=== PATIENT | female | born 1960 | race Caucasian/White ===

== ENCOUNTER 2020-03-23 08:13 | Outpatient (CLI) | payer OTHER, SELFPAY ==
--- NOTE | ~2020-03-23 | MM_ITS ---
EXAMINATION: MM screening kendra BI w bob HISTORY: Screening TECHNIQUE: Craniocaudal and mediolateral oblique 3-D tomosynthesis images were obtained and synthetic 2-D images were generated. CAD analysis was submitted and interpreted. COMPARISON: Comparison to multiple prior studies sequentially, with oldest reviewed study dated 11/08. BREAST PARENCHYMAL COMPOSITION: There are scattered areas of fibroglandular density. FINDINGS: There is no evidence of suspicious mass, calcification, or architectural distortion to sugg est malignancy in either breast. There has been no suspicious interval change. IMPRESSION: 1. No mammographic evidence of malignancy. 2. Recommend routine screening mammography in one year. BI-RADS Category 1: Negative Reviewed, dictated and finalized at location A. SQL DBA
== END 2020-03-23 08:14 | disposition home or self-care (01) ==
LOC: ANHIMG 08:15
PROVIDERS: PCP Physician Assistant; Visit Provider Physician Assistant
DX: Z12.31 Encounter for screening mammogram for malignant neoplasm of breast (principal)
CPT/HCPCS: 77063; 77067

== ENCOUNTER 2020-09-11 15:27 | Outpatient (CLI) | payer OTHER, SELFPAY ==
[2020-09-11 15:48] LABS: Basophils Percent Auto 0.4 % (0.2-1.2); Eosinophils Absolute Auto 0.2 K/mm3 (0-0.3); Eosinophils Percent Auto 4.4 % (0-4.4); Hematocrit 31.8 % (37.0-47.0); Hemoglobin 9.7 g/dL (12.0-15.0); Immature Granulocyte Absolute 0.02 K/mm3 (0.00-0.031); Immature Granulocyte Percent A 0.4 % (0-0.5); Immature Reticulocyte Fraction 27.7 % (3.0-15.9); Lymphocytes Absolute Auto 1.57 K/mm3 (0.9-3.2); Lymphocytes Percent Auto 31.4 % (18.3-44.2); Mean Corpuscular HGB Conc 30.5 g/dl (32-36); Mean Corpuscular Hemoglobin 27.1 pg (26-34); Mean Corpuscular Volume 88.8 fl (80-100); Mean Platelet Volume 10.6 fl (7.4-10.4); Monocytes Absolute Auto 0.4 K/mm3 (0.1-0.6); Monocytes Percent Auto 8.2 % (2.6-8.5); Neutrophils Absolute Auto 2.8 K/mm3 (1.3-6.7); Neutrophils Percent Auto 55.2 % (45.5-73.1); Platelet Count Result 264 k/mm3 (150-375); Red Blood Count 3.58 M/mm3 (4.2-5.4); Red Cell Distribution Width 16.2 % (11.5-14.5); Reticulocyte Hemoglobin Conten 30.9 pg (28.2-35.7); Reticulocyte Percent 1.46 % (0.7-4.3); Reticulocytes Absolute 0.05 B/L (32.2-175.7)
[2020-09-11 16:49] LABS: Iron 51 ug/dL (37-170)
[2020-09-11 16:51] LABS: Alanine Aminotransferase 15 U/L (4-35); Albumin Level 3.7 g/dL (3.5-5.1); Alkaline Phosphatase 52 U/L (38-126); Anion Gap 4 mmol/L (8-16); Aspartate Amino Transferase 17 U/L (14-36); Bilirubin,Total 0.3 mg/dL (0.2-1.3); Blood Urea Nitrogen 17 mg/dL (7-17); Carbon Dioxide 29 mmol/L (22-30); Chloride 107 mmol/L (98-107); Estimated Glomerular Filt Rate 57; Glucose 107 mg/dL (65-105); Lactate Dehydrogenase 520 U/L (313-618); Potassium 4.9 mmol/L (3.4-5.0); Sodium 140 mmol/L (137-145)
[2020-09-11 16:58] LABS: Percent Iron Saturation 12 % (20-50)
[2020-09-11 17:25] LABS: Ferritin 6.71 ng/mL (11.1-264)
[2020-09-11 17:57] LABS: Folic Acid 8.3 ng/mL (2.76->20); Vitamin B12 < 159.0 pg/mL (239-931)
[2020-09-14 19:57] LABS: Soluble Transferrin Receptor 1.81 mg/L (0.76-1.76)
== END 2020-09-11 15:28 | disposition home or self-care (01) ==
LOC: ANHLAB 15:28
PROVIDERS: PCP Physician Assistant; Visit Provider Internal Medicine Hematology & Oncology
DX: D64.9 Anemia, unspecified (principal)
CPT/HCPCS: 36415; 80053; 82607; 82728; 82746; 83540; 83550; 83615; 84238; 85025; 85046

== ENCOUNTER 2021-03-31 15:10 | Emergency (ER) | payer MEDICARE, MEDICAID, SELFPAY ==
--- NOTE | ~2021-03-31 | XR_ITS ---
EXAMINATION: XR elbow RT min 3V DATE: 03/31/2021 15:35 INDICATION: Right elbow injury and pain. TECHNIQUE: 4 views of right elbow were obtained. COMPARISON: Right forearm radiographs 05/02/2010 FINDINGS: There is a fracture of radial head involving the anterior 1/4 of the articular surface with 2 mm gap at the articular surface and up to 2 mm impaction. There is mild osteoarthritis of ulnohume ral joint. There are enthesophytes at the medial and lateral humeral epicondyles. There is an elbow j oint effusion. IMPRESSION: 1. Radial head fracture. 2. Mild elbow joint osteoarthritis. 3. Elbow joint effusion. Reviewed, dictated and finalized at location A. CTOR OF CATERING
[2021-03-31 15:17] VITALS: BP 137/66; PULSE 89; RESP 16; TEMP 35.9; O2SAT 100
--- NOTE | 2021-03-31 17:46 | ED.GENADULT ---
HPI - General Adult General Chief complaint: Extremity Injury, Upper Stated complaint: right arm pain Time Seen by Provider: 03/31/21 15:51 Source: RN notes reviewed History of Present Illness HPI narrative: Patient presents emergency room from home for right elbow pain. Patient states just prior to arrival she had fallen off of her porch landing on her right elbow that was bent states has had pain in the right elbow since that time she denies any other trauma or injury she denies any pain in the shoulder or wrist states did not take anything for pain at home denies any numbness or tingling in the extremity Related Data Home Medications Medication Instructions Recorded Confirmed atorvastatin 40 mg BYMOUTH DAILY 12/17/20 03/11/21 losartan 100 mg DAILY 12/17/20 03/11/21 metformin 100 mg BID 12/17/20 03/11/21 pregabalin 150 mg DAILY 12/17/20 03/11/21 Januvia 100 mg DAILY 12/18/20 03/11/21 Vitamin D (with calcium) 50,000 units PO WEEKLY 12/18/20 03/11/21 acarbose 25 mg TID 12/18/20 03/11/21 aspirin 8 mg DAILY 12/18/20 03/11/21 cyclobenzaprine 10 mg DAILY 12/18/20 03/11/21 docusate sodium 100 mg BID 12/18/20 03/11/21 montelukast 10 mg DAILY 12/18/20 03/11/21 omeprazole 20 mg PO DAILY 12/18/20 03/11/21 pioglitazone 45 mg DAILY 12/18/20 03/11/21 amlodipine 5 mg PO DAILY 03/11/21 03/11/21 Allergies Allergy/AdvReac Type Severity Reaction Status Date / Time Penicillins Allergy Mild Verified 03/11/21 11:15 Review of Systems Review of Systems: Gen.: Denies fevers or chills Musculoskeletal: See HPI Neuro: Denies numbness, tingling, weakness Skin: Denies rash Endo: Denies DM PMFSH Past Medical History Medical History (Updated 03/31/21 @ 17:49 by Peewee Gomez DO) B12 deficiency anemia Iron deficiency anemia Social History Social History Smoking status: Former smoker Tobacco type: cigarettes Spiritual care concerns: No Exam Narrative: APPEARANCE: No acute distress, nontoxic, resting in bed Eyes: EOMI HEENT: Normocephalic, atraumatic, RESPIRATORY: No respiratory distress MUSCULOSKELETAl: Tender palpation of the right lateral and dorsal elbow mild swelling with no ecchymosis no tenderness of the right wrist or elbow radial pulse 2+ neurovascular intact NEURO: Awake and alert. Following commands, speech normal, no focal deficits SKIN:: Warm, dry. Normal Color no rash or lesions Course Course Emergency Course: Discussed with Dr. Dick orthopedics presentation work-up request patient placed in sling with follow-up as an outpatient Discussed with patient results of workup and diagnosis. Discussed need for follow-up with primary care, proper use of medication, and reasons to return to the emergency department. Patient understands and agrees to current treatment plan Vital Signs Vital signs: Vital Signs Temperature 96.7 F L 03/31/21 15:17 Pulse Rate 89 03/31/21 15:17 Respiratory Rate 16 03/31/21 15:17 Blood Pressure 137/66 03/31/21 15:17 Pulse Oximetry 100 03/31/21 15:17 Temperature 96.7 F L 03/31/21 15:17 Pulse Rate 89 03/31/21 15:17 Respiratory Rate 16 03/31/21 15:17 Blood Pressure 137/66 03/31/21 15:17 Pulse Oximetry 100 03/31/21 15:17 Medical Decision Making Vital Signs Vital Signs: Vital Signs Temperature 96.7 F L 03/31/21 15:17 Pulse Rate 89 03/31/21 15:17 Respiratory Rate 16 03/31/21 15:17 Blood Pressure 137/66 03/31/21 15:17 Pulse Oximetry 100 03/31/21 15:17 Temperature 96.7 F L 03/31/21 15:17 Pulse Rate 89 03/31/21 15:17 Respiratory Rate 16 03/31/21 15:17 Blood Pressure 137/66 03/31/21 15:17 Pulse Oximetry 100 03/31/21 15:17 Imaging Data Radiologist's impression: ITS Impressions Elbow X-Ray 03/31/21 15:40 IMPRESSION: 1. Radial head fracture. 2. Mild elbow joint osteoarthritis. 3. Elbow joint effusion. Discharge Plan Discharge Clinical Impres
[2021-03-31] MEDS: ACETAMINOPHEN 500 MG TABLET 1000 MG PO (18:14)
[2021-03-31 18:30] VITALS: BP 130/72; PULSE 90; RESP 18; O2SAT 100
== END 2021-03-31 18:30 | disposition home or self-care (01) ==
LOC: ANHED 17:55
PROVIDERS: Emergency Provider Emergency Medicine; PCP Physician Assistant
DX: S52.121A Displaced fracture of head of right radius, initial encounter for closed fracture (principal); Z86.2 Personal history of diseases of the blood and blood-forming organs and certain disorders involving the immune mechanism; Z87.891 Personal history of nicotine dependence; W18.39XA Other fall on same level, initial encounter
CPT/HCPCS: 73080; 99284; A4565; A9270

== ENCOUNTER 2021-06-05 11:48 | Outpatient (CLI) | payer MEDICARE, MEDICAID, SELFPAY ==
--- NOTE | ~2021-06-05 | MM_ITS ---
EXAMINATION: MM screening kendra BI w bob HISTORY: Screening TECHNIQUE: Craniocaudal and mediolateral oblique 3-D tomosynthesis images were obtained and synthetic 2-D images were generated. CAD analysis was submitted and interpreted. COMPARISON: No prior mammogram is available for comparison at this institution. BREAST PARENCHYMAL COMPOSITION: There are scattered areas of fibroglandular density. FINDINGS: There is no evidence of suspicious mass, calcification, or architectural distortion to sugg est malignancy in either breast. There has been no suspicious interval change. IMPRESSION: 1. No mammographic evidence of malignancy. 2. Recommend routine screening mammography in one year. BI-RADS Category 1: Negative Reviewed, dictated and finalized at location A. E REPAIR MECHANIC
== END 2021-06-05 11:49 | disposition home or self-care (01) ==
LOC: ANHIMG 11:51
PROVIDERS: PCP Physician Assistant; Visit Provider Physician Assistant
DX: Z12.31 Encounter for screening mammogram for malignant neoplasm of breast (principal)
CPT/HCPCS: 77063; 77067

== ENCOUNTER 2022-06-16 14:46 | Outpatient (CLI) | payer MEDICARE, MEDICAID, SELFPAY ==
--- NOTE | ~2022-06-16 | MM_ITS ---
EXAMINATION: MM screening kendra BI w bob HISTORY: Screening TECHNIQUE: Craniocaudal and mediolateral oblique 3-D tomosynthesis images were obtained and synthetic 2-D images were generated. CAD analysis was submitted and interpreted. COMPARISON: Comparison to multiple prior studies sequentially, with oldest reviewed study dated 02/16. BREAST PARENCHYMAL COMPOSITION: There are scattered areas of fibroglandular density. FINDINGS: There is no evidence of suspicious mass, calcification, or architectural distortion to sugg est malignancy in either breast. There has been no suspicious interval change. IMPRESSION: 1. No mammographic evidence of malignancy. 2. Recommend routine screening mammography in one year. BI-RADS Category 1: Negative Reviewed, dictated and finalized at location A. ATIONS ARCHITECT
== END 2022-06-16 14:47 | disposition home or self-care (01) ==
LOC: ANHIMG 14:47
PROVIDERS: PCP Nurse Practitioner; Visit Provider Nurse Practitioner
DX: Z12.31 Encounter for screening mammogram for malignant neoplasm of breast (principal)
CPT/HCPCS: 77063; 77067

== ENCOUNTER 2022-08-07 14:34 | Outpatient (CLI) | payer MEDICARE, MEDICAID, SELFPAY ==
[2022-08-07 14:54] LABS: Basophils Absolute Auto 0.1 K/mm3 (0.0-0.1); Basophils Percent Auto 0.9 % (0.2-1.2); Eosinophils Absolute Auto 0.1 K/mm3 (0-0.3); Eosinophils Percent Auto 2.1 % (0-4.4); Hematocrit 33.2 % (37.0-47.0); Hemoglobin 10.6 g/dL (12.0-15.0); Immature Granulocyte Absolute 0.01 K/mm3 (0.00-0.031); Immature Granulocyte Percent A 0.2 % (0-0.5); Lymphocytes Percent Auto 31.5 % (18.3-44.2); Mean Corpuscular HGB Conc 31.9 g/dl (32-36); Mean Corpuscular Hemoglobin 30.1 pg (26-34); Mean Corpuscular Volume 94.3 fl (80-100); Mean Platelet Volume 10.6 fl (7.4-10.4); Monocytes Absolute Auto 0.4 K/mm3 (0.1-0.6); Monocytes Percent Auto 7.2 % (2.6-8.5); Neutrophils Absolute Auto 3.3 K/mm3 (1.3-6.7); Neutrophils Percent Auto 58.1 % (45.5-73.1); Platelet Count Result 263 k/mm3 (150-375); Red Blood Count 3.52 M/mm3 (4.2-5.4); Red Cell Distribution Width 14.8 % (11.5-14.5); White Blood Count 5.7 K/mm3 (4.5-10.0)
[2022-08-07 15:26] LABS: Cholesterol 122 mg/dL (0-200); HDL Direct 50 mg/dL; Iron 64 ug/dL (37-170); Triglycerides 122 mg/dL (<150)
[2022-08-07 15:36] LABS: Percent Iron Saturation 17 % (20-50)
[2022-08-07 15:37] LABS: LDL Cholesterol Direct 39 mg/dL
[2022-08-07 16:36] LABS: Folic Acid 11.4 ng/mL (2.76->20)
== END 2022-08-07 14:35 | disposition home or self-care (01) ==
LOC: ANHLAB 14:37
PROVIDERS: Internal Medicine Cardiovascular Disease; PCP Nurse Practitioner; Visit Provider Internal Medicine Hematology & Oncology
DX: E78.5 Hyperlipidemia, unspecified (principal); D51.9 Vitamin B12 deficiency anemia, unspecified
CPT/HCPCS: 36415; 80061; 82607; 82728; 82746; 83540; 83550; 85025

== ENCOUNTER 2023-04-27 10:24 | Outpatient (CLI) | payer MEDICARE, MEDICAID, SELFPAY ==
--- NOTE | ~2023-04-27 | US_ITS ---
EXAMINATION: US retroperitoneal comp DATE: 04/27/2023 11:54 INDICATION: Chronic kidney disease. TECHNIQUE: Multiple ultrasound grayscale images of the kidneys were obtained. COMPARISON: None. FINDINGS: The right kidney measures 10.0 x 3.1 x 3.0 cm. The left kidney measures 12.7 x 3.5 x 4.7 cm. The kidn eys demonstrate normal parenchymal echogenicity. There is no hydronephrosis. The bladder is normal. IMPRESSION: 1. Normal kidneys. No hydronephrosis. Reviewed, dictated and finalized at location A. TTER
== END 2023-04-27 10:25 | disposition home or self-care (01) ==
PROVIDERS: PCP Nurse Practitioner; Visit Provider Nurse Practitioner
DX: N18.32 Chronic kidney disease, stage 3b (principal)
CPT/HCPCS: 36415; 76770; 82607; 82746; 85025

== ENCOUNTER 2023-08-05 13:56 | Outpatient (CLI) | payer MEDICARE, MEDICAID, SELFPAY ==
--- NOTE | ~2023-08-05 | MM_ITS ---
EXAMINATION: MM screening kendra BI w bob HISTORY: Screening TECHNIQUE: Craniocaudal and mediolateral oblique 3-D tomosynthesis images were obtained and synthetic 2-D images were generated. CAD analysis was submitted and interpreted. COMPARISON: Comparison to multiple prior studies sequentially, with oldest reviewed study dated 02/16. BREAST PARENCHYMAL COMPOSITION: Not dense: There are scattered areas of fibroglandular density. FINDINGS: There is no evidence of suspicious mass, calcification, or architectural distortion to sugg est malignancy in either breast. There has been no suspicious interval change. IMPRESSION: 1. No mammographic evidence of malignancy. 2. Recommend routine screening mammography in one year. BI-RADS Category 1: Negative Reviewed, dictated and finalized at location A.
== END 2023-08-05 13:57 | disposition home or self-care (01) ==
LOC: ANHIMG 14:02
PROVIDERS: PCP Nurse Practitioner; Visit Provider Nurse Practitioner
DX: Z12.31 Encounter for screening mammogram for malignant neoplasm of breast (principal)
CPT/HCPCS: 77063; 77067

== ENCOUNTER 2024-10-15 10:00 | Outpatient (CLI) | payer MEDICARE, MEDICAID, SELFPAY ==
--- NOTE | ~2024-10-15 | MM_ITS ---
EXAMINATION: MM screening kendra BI w bob HISTORY: Screening TECHNIQUE: Craniocaudal and mediolateral oblique 3-D tomosynthesis images were obtained and synthetic 2-D images were generated. CAD analysis was submitted and interpreted. COMPARISON: Comparison to multiple prior studies sequentially, with oldest reviewed study dated 02/16. BREAST PARENCHYMAL COMPOSITION: Not dense: There are scattered areas of fibroglandular density. FINDINGS: There is no evidence of suspicious mass, calcification, or architectural distortion to sugg est malignancy in either breast. There has been no suspicious interval change. IMPRESSION: 1. No mammographic evidence of malignancy. 2. Recommend routine screening mammography in one year. BI-RADS Category 1: Negative Reviewed, dictated and finalized at location A.
--- OUTSIDE RECORDS SUMMARY | 2024-10-15 10:04 | XMS_ITS | Encounter Summary ---
Author Organization [facility] Address [address] [place] [address] Phone Care Team Providers Care Formula Checker Name Role Phone Francisco Javier Guerra Primary Care Provider [phone] Juanito Connolly MD Unavailable [phone] Encounter Details Date Type Department Care Team (Late st Contact Info) Description 10/22/2021 Telephone [facility] [address] [phone] Juanito Connolly MD [address] [place] [phone] Social History Tobacco Use Types Packs/Day Years Used Date Smoking Tobacco: Never Assessed Comments Unknown Sex and Gender Information Value Date Recorded Sex Assigned at Not on file Legal Sex Female 11:25 AM CDT Gender Identity Not on file Sexual Orientation Not on file documented as of this encounter Miscellaneous Notes * Telephone Encounter - Charissa Krishnan - 10/22/2021 3:09 PM CDT PT CANCEL APPT, BECAUSE SHE ALREADY SEES DR. DICKINSON. documented in this encounter Plan of Treatment Not on file documented as of this encounter Visit Diagnoses Not on filedocumented in this encounter Care Teams Formula Checker Relationship Specialty Start Date End Date Francisco Javier Guerra PA [address] [place] [address] PCP - General Physician Route Sales Trainee 08/30/21 Juanito Connolly MD [address] [place] [address] Consulting Physician Oncology 08/30/21 documented as of this encounter
--- OUTSIDE RECORDS SUMMARY | 2024-10-15 10:04 | XMS_ITS | Clinical Summary ---
Author Organization [facility] León Gross Address [address] [place] [address] Care Team Providers Care It Security Architect Name Role Phone Provider, Abstract Primary Care Provider Unavail able Allergies Active Allergy Reactions Criticality Noted Date Comments Penicillins Rash Low 09/11/2020 Medications pioglitazone (ACTOS) 45 mg tablet pioglitazone 45 mg tablet TK 1 T PO QD 08/07/19 21 Active atorvastatin (LIPITOR) 40 mg tablet atorvastatin 40 mg tablet TK 1 T PO QD 12/05/19 18 Active aspirin (ECOTRIN EC) 81 mg Tablet, Delayed Release (E.C.) Take by mouth. 07/31/19 21 Active ammonium lactate (LAC-HYDRIN) 12 % Lotion ammonium lactate 12 % lotion ERLINDA EXT TO AB FEET D PRN Active alcohol Pads, Medicated Alcohol Prep Pads Ac tive cholecalcifero l (VITAMIN D3) 400 unit Tablet, Chewable VITAMIN D TABLET 01/15/20 18 Active blood sugar diagnostic Strip OneTouch Verio test strips Active lancets 30 gauge lancets 30 gauge Act elbert cyclobenzaprin e (FLEXERIL) 10 mg tablet cyclobenzaprine 10 mg tablet TK 1 T PO QD HS 07/09/19 21 Active docusate sodium (COLACE) 100 mg capsule DOK 100 mg capsule TK 1 C PO BID PRN 12/05/19 18 Active ergocalciferol (VITAMIN D2) 50,000 unit capsule ergocalciferol (vitamin D2) 1,250 mcg (50,000 unit) capsule Active metFORMIN (GLUCOPHAGE) 1,000 mg tablet metformin 1,000 mg tablet TK 1 T PO BID QD 12/05/19 18 Active montelukast (SINGULAIR) 10 mg tablet montelukast 10 mg tablet TK 1 T PO QAM 12/05/19 18 Active potassium chloride (KLOR-CON) 10 mEq Extended Release tablet potassium chloride ER 10 mEq tablet,extended release TK 1 T PO QD FOR 10 DAYS Active pregabalin (LYRICA) 150 mg Capsule pregabalin 150 mg capsule 12/05/19 18 Active SITagliptin (JANUVIA) 100 mg Tablet Januvia 100 mg tablet TK 1 T PO QAM 12/05/19 18 Active amLODIPine (NORVASC) 5 mg tablet Take by mouth. 02/26/20 21 Active Active Problems Problem Noted Date Diagnosed Date Other dietary vitamin B12 deficiency anemia 09/15 Chronic anemia 09/11/2020 Encounters Date Type Department Care Team Description 10/11/2024 External Device Data STL ABSTRACTION Provider, Abstract 10/05/2024 External Device Data STL ABSTRACTION Provider, Abstract 10/04/2024 External Device Data STL ABSTRACTION Provider, Abstract 08/16/2024 External Device Data STL ABSTRACTION Provider, Abstract 08/03/2024 External Device Data STL ABSTRACTION Provider, Abstract 07/27/2024 External Device Data STL ABSTRACTION Provider, Abstract 07/26/2024 External Device Data STL ABSTRACTION Provider, Abstract 07/25/2024 External Device Data STL ABSTRACTION Provider, Abstract 07/23/2024 External Device Data STL ABSTRACTION Provider, Abstract 07/22/2024 External Device Data STL ABSTRACTION Provider, Abstract 07/20/2024 External Device Data STL ABSTRACTION Provider, Abstract 07/19/2024 11:00 AM FAST FOOD ASSISTANT RESTAURANT MANAGER Office Visit [facility] [address] [place] [phone] Devang Watson MD Chronic anemia (Primary Dx) 07/18/2024 Orders Only [facility] [address] [place] [phone] Devang Watson MD from Last 3 Months Family History Relation Name Status Comments Brother Father Mother Sister 1 Alive Sister 2 Alive Social History Tobacco Use Types Packs/Day Years Used Date Smoking Tobacco: Former Smokeless Tobacco: Never Tobacco Cessation:Counseling Given: Not Answered Alcohol Use Standard Drinks/Week Comments Never 0 (1 standard drink = 0.6 oz pur e alcohol) Comments Unknown Sex and Gender Information Value Date Recorded Sex Assigned at Not on file Legal Sex Female 8:03 AM CDT Gender Identity Not on file Sexual Orientation Not on file Last Filed Vital Signs Vital Sign Reading Time Taken Comments Blood Pressure 133/76 07/19/2024 10:17 AM FAST FOOD ASSISTANT RESTAURANT MANAGER Pulse 83 07/19/2024 10:17 AM FAST FOOD ASSISTANT RESTAURANT MANAGER Temperature 35.9 C (96.6 F) 07/19/2024 10:17 AM FAST FOOD ASSISTANT RESTAURANT MANAGER Respiratory Rate 15 07/19/2024 10:17 AM FAST FOOD ASSISTANT RESTAURANT MANAGER Oxygen Saturation 95% 07/19/2024 10:17 AM FAST FOOD ASSISTANT RESTAURANT MANAGER Inhaled Oxygen Concentration - - Weight 95.3 kg (210 lb 3.2 oz) 07/19/2024 10:17 AM FAST FOOD ASSISTANT RESTAURANT MANAGER Height 167.6 cm (5' 6) 02/10/2022 9:19 AM CDT Body Mass Index 33.93 02/10/2022 9:19 AM CDT Plan of Treatment Upcoming Encounters Date Type Department Care Team (Late st Contact Info) Description 11/21/2024 10:00 AM CDT Office Visit [facility] - [place] [address] [facility] [address] [place] [address] Devang Watson MD [address] [facility] [address] [place] [address] Health Maintenance Due Date Last Done Comments DIABETES ANNUAL FOOT EXAM 1978 DIABETES ANNUAL RETINAL EXAM 1978 DIABETES MICROALBUMIN ANNUAL SCREEN 1978 LDL CHOLESTEROL ANNUAL 1978 HPV/Cotest (21-29) 1981 HPV/Cotest (30-65) 1990 FIT-DNA Q 3 years 2005 FIT/FOBT Q 1 year 2005 Flex Sig/CT Colonography Q 5 years 2005 ZOSTER VACCINE (1 of 2) 2010 RSV VACCINE (60+ or ) (1 - Risk 60-74 years 1-dose series) 2020 COVID-19 Vaccine (2 - 2023-2 5 season) 2024 08/16/2021 BREAST CANCER SCREENING 08/04/2024 08/05/19 24, 08/05/2023, 06/16/2022, Additional history exists DIABETES HBA1C Q 6 MONTHS 12/05/20242024, 2023, 06/02/2023, Additional history exists CERVICAL CANCER SCREENING 10/07/2025 PAP SMEAR 10/07/2025 10/07/2022 COLORECTAL SCREENING 03/21/2031 03/21/2021 Colorectal Cancer Screening 03/21/2031 DTAP/TDAP/TD VACCINES (2 - T d or Tdap) 02/18/2032 02/17/2022 INFLUENZA VACCINE Completed 03/24/2024, , 02/17/2022, Additional history exists Procedures Procedure Name Priority Date/Time Associated Diagnosis Comments COMPREHENSIVE METABOLIC PANEL Routine 07/15/2024 9:52 AM FAST FOOD ASSISTANT RESTAURANT MANAGER from Last 3 Months Results * COMPREHENSIVE METABOLIC PANEL (07/15/2024 9:52 AM FAST FOOD ASSISTANT RESTAURANT MANAGER) Blood Devang Watson MD CHEMISTRY ORDERABLES Final Resu lt from Last [address] [id number] Care Teams It Security Architect Relationship Specialty Start Date End Date Provider, Abstract NO ADDRESS ON FILE PCP - General 09/11/20
--- OUTSIDE RECORDS SUMMARY | 2024-10-15 10:04 | XMS_ITS | Clinical Summary ---
Author Organization [facility] Address [address] [facility] [address] [place] [address] Phone Care Team Providers Care Shingle Sawyer Name Role Phone Francisco Javier Guerra Primary Care Provider [phone] Juanito Connolly MD Unavailable Social History Tobacco Use Types Packs/Day Years Used Date Smoking Tobacco: Never Assessed Comments Unknown Sex and Gender Information Value Date Recorded Sex Assigned at Not on file Legal Sex Female 11:25 AM CDT Gender Identity Not on file Sexual Orientation Not on file Plan of Treatment Health Maintenance Due Date Last Done Comments Hepatitis C Virus (HCV) Screening 1960 TdaP Immunization 1960 Pap Smear 1981 Cervical Cancer Screening (CCS) 1990 HPV/Cotest 1990 Colonoscopy 2005 Colorectal Cancer Screening 2005 Cologuard 2010 Immunochemical Fecal Occult Blood 2010 Mammogram 2010 Pneumococcal Immunization (50+ years) (1 of 1 - PCV) 2010 Zoster Immunization (1 of 2) 2010 Influenza Immunization (#1) 01/17/202404/17, 02/28/2020, 02/15/2019, Additional history exists SARS-COV-2 Immunization ( season) 2024 08/16/2021, 07/26/2020 Respiratory Syncytial Virus (RSV) Immunization (Adult) (1 - 1-dose 75+ series) 12/03/2035 Hepatitis B Immunization Aged Out No longer eligible based on patient's age to complete this topic Meningococcal Immunization (ACWY) Aged Out No longer eligible based on patient's age to complete this topic Pneumococcal Immunization Combined Aged Out No longer eligible based on patient's age to complete this topic Rotavirus Immunization Aged Out No lo nger eligible based on patient's age to complete this topic Insurance MEDICARE C [employer]ICAID [place] Care Teams Shingle Sawyer Relationship Specialty Start Date End Date Francisco Javier Guerra PA [address] [place] [id number] PCP - General Physician Seafood Fisherman 08/30/21 Juanito Connolly MD [address] [place] [phone] Consulting Physician Oncology 08/30/21
--- OUTSIDE RECORDS SUMMARY | 2024-10-15 10:04 | XMS_ITS | CONTINUITY OF CARE DOCUMENT ---
Author Name deanna huerta Address Unknown Organization [facility] Address [id number] [place] [address] [address] [place] [address] Phone [phone] Care Team Providers Care Sensitometrist Name Role Phone Moise RODGERS, Juan Jose Unavailable MD ASHANTI, SHEA Unavailable WeinHyacinth Mitchell Unavailable PROBLEMS Condition Status Date Provider Notes Family History of Hypertension: completed - Us alexei Phipps MD Family History of CVA or Stroke: completed - [place] Phipps MD Family History of Hypertension: completed - Us alexei Phipps MD Family History of Hypertension: completed - Us alexei Phipps MD HTN active Juan Jose Phipps MD Hypercholesterolemia active Juan Jose Phipps MD Neuropathy active Juan Jose Phipps MD Diabetes mellitus active Juan Jose Phipps MD Leg edema, bilateral completed - Juan Jose Phipps MD Leg pain, bilateral active Juan Jose Phipps MD VENOUS INSUFFICIENCY active Juan Jose Phipps MD Murmur active Juan Jose Phipps MD Obesity active Juan Jose Phipps MD SLEEP APNEA active Juan Jose Phipps MD Edema active Juan Jose Phipps MD Dyspnea on exertion active Juan Jose Phipps MD PAC's active Juan Jose Phipps MD ENCOUNTERS Date Type Provider Location Encounter Diag nosis - In-person encounter Office Visit Juan Jose Phipps MD [place] [facility] - In-person encounter Office Visit Juan Jose Phipps MD [facility] PAC's - In-person encounter Office Visit Juan Jose Phipps MD [facility] - In-person encounter Office Visit Juan Jose Phipps MD [facility] Dyspnea on exertion - In-person encounter Office Visit Juan Jose Phipps MD [facility] - In-person encounter Office Visit Juan Jose Phipps MD [facility] SLEEP APNEAEdema - In-person encounter Office Visit Juan Jose Phipps MD [facility] Family History of Hypertension:Family History of CVA or Stroke:Family History of Hypertension:Leg edema, bilateral - In-person encounter Office Visit Juan Jose Phipps MD [facility] Obesity - In-person encounter Office Visit Juan Jose Phipps MD [facility] - In-person encounter Office Visit Juan Jose Phipps MD [facility] - In-person encounter Office Visit Juan Jose Phipps MD [facility] Family History of Hypertension:Murmur - In-person encounter Office Visit Juan Jose Phipps MD [facility] Leg pain, bilateralVENOUS INSUFFICIENCY - In-person encounter Office Visit Juan Jose Phipps MD [facility] HTNHypercholesterolemiaNeuropathyDiabete s mellitus VITAL SIGNS Date Observation Value Provider Body Mass Index (Ratio) 35.55 kg/m2 Evelina Phipps MD blood pressure, cuff size regular Ke rri Gruenenfelder blood pressure, diastolic 90 mm[Hg] Ke rri Gruenenfelder blood pressure, systolic 166 mm[Hg] Luiz Echevarriaelder oxygen saturation, oximetry 98 % Pretty Echevarriaelder respiratory rate E&M 12 /min Pretty Allen yumikoweielder pulse rate 86 /min Pretty Wilkins er weight E&M 227 [lb_av] Pretty Wilkins height E&M 67 [in_i] Pretty Claudette Body Mass Index (Ratio) 35.39 kg/m2 Evelina Phipps MD blood pressure, cuff size regular Ja rret blood pressure, diastolic 75 mm[Hg] Ja rret blood pressure, systolic 129 mm[Hg] Jar ret pulse rate 85 /min Chaim respiratory rate E&M 12 /min Chaim oxygen saturation, oximetry 99 % Chaim weight E&M 226 [lb_av] Chaim height E&M 67 [in_i] Chaim y blood pressure, diastolic 77 mm[Hg] Li [facility] blood pressure, systolic 127 mm[Hg] Susy [facility]Logic Body Mass Index (Ratio) 38.84 kg/m2 Trabraulio Haskinsly blood pressure, diastolic 77 mm[Hg] St ephanijared [place] blood pressure, systolic 127 mm[Hg] Brian sharp [place] oxygen saturation, oximetry 99 % Monica [place] pulse rate 99 /min Supriya Ventimig harriet STUDENT SUCCESS ADVISOR respiratory rate E&M 16 /min Bartolome kumar [place] weight E&M 248 [lb_av] Monica [facility] n blood pressure, cuff size large [facility] whitmore [place] height E&M 67 [in_i] Monica Linms n Body Mass Index (Ratio) 41.97 kg/m2 Evelina Phipps MD blood pressure, diastolic 75 mm[Hg] Marissa coombs [place] blood pressure, systolic 115 mm[Hg] Steve helkaylee [place] oxygen saturation, oximetry 97 % Charissa Canseco pulse rate 100 /min Charissa simons weight E&M 268 [lb_av] Charissa simons respiratory rate E&M 16 /min Sujata coleman [place] blood pressure, cuff size large Marissa coombs [place] height E&M 67 [in_i] Charissa simons Body Mass Index (Ratio) 43.22 kg/m2 Evelina Phipps MD blood pressure, diastolic 82 mm[Hg] Li nkLogic blood pressure, systolic 151 mm[Hg] Susy kLogic blood pressure, diastolic 82 mm[Hg] Ca therine Cedric blood pressure, systolic 151 mm[Hg] Cat herine [place] oxygen saturation, oximetry 98 % Arlin Cedric respiratory rate E&M 16 /min Catheri ne [place] pulse rate 87 /min Juan Jose Phipps MD weight E&M 276 [lb_av] Arlin [place] blood pressure, cuff size regular Ca therine [place] height E&M 67 [in_i] Arlin [place] Body Mass Index (Ratio) 42.44 kg/m2 Evelina Phipps MD blood pressure, diastolic 60 mm[Hg] Rh onyadi Estefani blood pressure, systolic 111 mm[Hg] Rho ndortiz Estefani oxygen saturation, oximetry 98 % Munira Estefani pulse rate 92 /min Munira Estefani respiratory rate E&M 16 /min Muniraortiz Jara blood pressure, resting Yes Rhon yadi Estefani blood pressure, cuff size regular Rh cuate Estefani weight E&M 271 [lb_av] Muniraortiz Jara height E&M 67 [in_i] Munira Jara Body Mass Index (Ratio) 44.32 kg/m2 Evelina Phipps MD blood pressure, cuff size large Ke rri Rupal blood pressure, diastolic 80 mm[Hg] Ke rri Rupal blood pressure, systolic 132 mm[Hg] Ker rafael Goldsmith oxygen saturation, oximetry 98 % Pretty Goldsmith respiratory rate E&M 16 /min Pretty graves pulse rate 75 /min Pretty Wilkins er weight E&M 283 [lb_av] Pretty sanchezer height E&M 67 [in_i] Pretty Wilkins [facility] Body Mass Index (Ratio) 41.03 kg/m2 Evelina Phipps MD blood pressure, diastolic 74 mm[Hg] Cy stella Deutsch blood pressure, systolic 149 mm[Hg] Savita randolph [place] blood pressure, cuff size regular Cy stella Deutsch pulse rate 90 /min Mona abbott respiratory rate E&M 18 /min Mona Deutsch oxygen saturation, oximetry 100 % Mona Deutsch weight E&M 262 [lb_av] Mona abbott height E&M 67 [in_i] Mona Huynhbel l Body Mass Index (Ratio) 45.57 kg/m2 Evelina Phipps MD blood pressure, cuff size regular Cy stella Deutsch blood pressure, diastolic 84 mm[Hg] Cy stella Deutsch blood pressure, systolic 146 mm[Hg] Savita randolph Deutsch respiratory rate E&M 18 /min Monarandolph Deutsch pulse rate 99 /min Mona abbott oxygen saturation, oximetry 94 % Mona Deutsch weight E&M 291 [lb_av] Mona Guerrero l height E&M 67 [in_i] Mona abbott Body Mass Index (Ratio) 43.85 kg/m2 Evelina Phipps MD blood pressure, cuff size regular Cy stella Deutsch blood pressure, diastolic 70 mm[Hg] Cy stella Deutsch blood pressure, systolic 130 mm[Hg] Savita randolph Deutsch oxygen saturation, oximetry 97 % Mona Deutsch respiratory rate E&M 16 /min Monarandolph Deutsch pulse rate 80 /min Mona abbott weight E&M 280 [lb_av] Mona Guerrero l height E&M 67 [in_i] Mona Huynhbel l Body Mass Index (Ratio) 43.69 kg/m2 Evelina Phipps MD blood pressure, diastolic 80 mm[Hg] Da malik Lorena blood pressure, systolic 132 mm[Hg] Dac ia Lorena oxygen saturation, oximetry 93 % Jennifer Lorena respiratory rate E&M 18 /min Jennifer V oss pulse rate 75 /min Jennifer Lorena weight E&M 279 [lb_av] Jennifer Lorena height E&M 67 [in_i] Jennifer Lorena Body Mass Index (Ratio) 43.07 kg/m2 Evelina Phipps MD blood pressure, cuff size large Ke rri Gruenenfelder blood pressure, diastolic 70 mm[Hg] Ke rri Gruenenfelder blood pressure, systolic 110 mm[Hg] Ker ri Jerryameenasheaeldkeily oxygen saturation, oximetry 98 % Pretty Simónmagalysheaeldkeily respiratory rate E&M 20 /min Pretty G ruenenfelder pulse rate 77 /min Pretty Simónjerry lder weight E&M 275 [lb_av] Pretty Grcalee lder height E&M 67 [in_i] Pretty Grcalee lder Body Mass Index (Ratio) 42.13 kg/m2 Evelina Phipps MD blood pressure, diastolic 66 mm[Hg] Da malik Lorena blood pressure, systolic 112 mm[Hg] Dac ia Lorena oxygen saturation, oximetry 94 % Jennifer Lorena respiratory rate E&M 18 /min Jennifer V oss pulse rate 89 /min Jennifer Lorena weight E&M 269 [lb_av] Jennifer Lorena height E&M 67 [in_i] Jennifer Lorena ALLERGIES Allergy Name Onset Date Reaction Criticality Status PENICILLIN Low Criticality active RESULTS Date Observation Value Provider Reference Range Interpretation Location 9 thyroid stimulating hormone, serum 3.230 u[IU]/mL [facility] 0.450-4.500 9 hemoglobin A1C, blood, as % of total hemoglobin 7.2 % [facility] 4.8-5.6 High 9 alanine aminotransferase (SGPT), serum 14 1/L [facility] 0-32 9 aspartate aminotransferase (SGOT), serum 11 1/L [facility] 0-40 9 alkaline phosphatase, serum 71 1/L [facility] 39-117 9 bilirubin, serum, total 0.2 mg/dL [facility] 0.0-1.2 9 albumin/globulin ratio, serum 1.8 [facility] 1.2-2.2 9 globulin, serum 2.4 [facility] 1.5-4.5 9 albumin, serum 4.3 g/dL [facility] 3.5-5.5 9 protein, total, serum 6.7 g/dL [facility] 6.0-8.5 9 calcium, serum 9.6 mg/dL [facility] 8.7-10.2 9 carbon dioxide, venous blood 22 mmol/L [facility] 20-29 9 chloride, serum 104 mmol/L [facility] 96-106 9 potassium, serum 5.2 mmol/L [facility] 3.5-5.2 9 sodium, serum 142 mmol/L [facility] 629-960 1501/08/2 9 urea nitrogen/creatinine ratio, serum 13 [facility] 9-23 9 eGFR if 79 mL/min/{1 .73_m2} [facility] >59 9 eGFR if not 68 mL/min/{1 .73_m2} [facility] >59 9 creatinine, serum 0.93 mg/dL [facility] 0.57-1.00 9 urea nitrogen, blood 12 mg/dL [facility] 6-24 9 blood glucose, random 147 mg/dL [facility] 65-99 High HISTORY OF MEDICATION USE Medication Status Instructions Dates Provider Indications Com mentralf Ozempic 0.25 mg or 0.5 mg(2 mg/1.5 mL) pen injector active Supriya SALAZAR amlodipine 5 mg tablet active TAKE 1 TABLET BY MOUTH EVERY DAY Pretty Goldsmith amlodipine 5 mg tablet completed Take 1 tablet by mouth once a day - Pretty Goldsmith cyclobenzaprine 10 mg tablet active Take 1 tablet by mouth every night Pretty Goldsmith #30, 30 days supply, Prescribed by JOSH GUERRA, Filled 07/17/2020 duloxetine 30 mg capsule,delayed release(DR/EC) active Take 1 capsule by mouth every night Pretty Goldsmith #7, 7 days supply, Prescribed by JOSH GUERRA, Filled 07/30/2020 aspirin 81 mg tablet,delayed release (DR/EC) active Take 1 tablet by mouth once a day Pretty Goldsmith #30, 30 days supply, Prescribed by JOSH GUERRA, Filled 07/30/2020 pioglitazone 45 mg tablet active Take 1 tablet by mouth once a day Pretty Goldsmith #30, 30 days supply, Prescribed by JOSH GUERRA, Filled 08/06/2020 SOMA TABLET completed take 1 tab once a day - Pretty Goldsmith VITAMIN D TABLET active Take 1 once a week Pretty Goldsmith acarbose 25 mg tablet active Take 1 three times a day Jennifer Carrillo metformin 1,000 mg tablet active Take 1 twice a day Jennifer Carrillo Cozaar 100 mg tablet completed Take 1 tablet once a day - Supriya SALAZAR atorvastatin 40 mg tablet active Take tablet once a day Jennifer Lorena Januvia 100 mg tablet active Take 1 tablet once a day Jennifer Lorena NORTRIPTYLINE HCL 10 MG ORAL CAPSULE completed take 2 at bedtime as needed - Mona Deutsch Stool Softener 100 mg capsule completed Take 1 twice a day - Supriya SALAZAR Lyrica 150 mg capsule completed Take 1 tablet twice a day - Supriya SALAZAR Singulair 10 mg tablet completed Take 1 tablet once a day - Supriya [facility]jo [facility] SOCIAL HISTORY Date Observation Value Provider drug use no Juan Jose Phipps MD alcohol use no Juan Jose Phipps MD smoking status Never smoker Juan Jose Phipps MD smoking status Never smoker Juan Jose Phipps MD social history E&M Smoking Histo ry: Rory verdin has never smoked. Juan Jose Phipps MD social history reviewed E&M revi ewed - no changes required Juan Jose Phipps MD social history E&M S moking History: Rory verdin has never smoked. Supriya MCNAIRP social history reviewed E&M revi ewed - no changes required Supriya MCNAIRP smoking status Never smoker Monica linda social history E&M S moking History: Rory verdin has never smoked. Juan Jose Phipps MD social history reviewed E&M revi ewed - no changes required Juan Jose Phipps MD smoking status Never smoker Charissa Griffin and social history E&M S moking History: Rory verdin has never smoked. Juan Jose Phipps MD social history reviewed E&M revi ewed - no changes required Juan Jose Phipps MD smoking status Never smoker Arlin [place] drug use no Juan Jose Phipps MD alcohol use no Juan Jose Phipps MD social history E&M S moking History: Rory verdin has never smoked. Juan Jose Phipps MD social history reviewed E&M revi ewed - no changes required Juan Jose Phipps MD smoking status Never smoker Munira Jara alcohol use no Juan Jose Phipps MD social history E&M S moking History: P lambert has never smoked. Juan Jose Phipps MD social history reviewed E&M revi ewed - no changes required Juan Jose Phipps MD smoking status Never smoker Pretty moseley alcohol use no Juan Jose Phipps MD social history E&M S moking History: P lambert has never smoked. Juan Jose Phipps MD social history reviewed E&M revi ewed - no changes required Juan Jose Phipps MD smoking status Never smoker Mona amrao social history E&M S moking History: Rory verdin has never smoked. Juan Jose Phipps MD social history reviewed E&M revi ewed - no changes required Juan Jose Phipps MD smoking status Never smoker Mona amaro alcohol use no Juan Jose Phipps MD social history E&M S moking History: Rory verdin has never smoked. Juan Jose Phipps MD social history reviewed E&M revi ewed - no changes required Juan Jose Phipps MD smoking status Never smoker Mona amaro social history reviewed E&M revi ewed - no changes required Juan Jose Phipps MD smoking status Never smoker Jennifer Lorena social history E&M S moking History: Rory verdin has never smoked. Juan Jose Phipps MD social history reviewed E&M revi ewed - no changes required Juan Jose Phipps MD smoking status Never smoker Pretty moseley smoking status Never smoker Juan Jose Phipps MD number of grandchildren Juan Jose Phipps MD social history E&M S moking History: Rory verdin is a former smoker. Juan Jose Phipps MD social history reviewed E&M revi ewed - no changes required Juan Jose Phipps MD FAMILY HISTORY Family Member Condition Mother Family History of Di abetes: Mother Family History of Hy pertension: Mother Family History of Di abetes: Mother Family History of Di abetes: Mother Family History of Hy pertension: Mother Family History of Di abetes: Mother Family History of CV A or Stroke: Mother Family History of Di abetes: Mother Family History of Hy pertension: Mother Family History of Di abetes: Maternal Grandmother Family History of D iabetes: Mother Family History of Di abetes: INSURANCE PROVIDERS Payer name Policy type / Coverage type [place] party ID AARP MEDICARE ADVANTAGE HMO-POS HMO [id number] ADVANCE DIRECTIVES Name Date DISCUSSED - NO DECISION MADE TREATMENT PLAN Date Name Performer [id number],C,W ill check a 24 hour Halter and echo but she is asymptomatic Juan Jose Phipps MD [id number],B, Juan Jose Phipps MD [id number],B, Juan Jose Phipps MD [id number],C, P er PCP Supriyaana Vallejo [facility] [id number],C, S table. Supriyaana Vallejo [facility] [id number],C, M ild. AHI 12.2. Pt. says she sleeps fine. Supriyaana Vallejo [facility] [id number],S, C ontrolled with compression stockings. Swelling persists, L > R. Supriyaana Vallejo [facility] [id number],S, H er updated medication list for this problem includes: Atorvastatin 40 Mg Tablet (Atorvastatin) ..... Take tablet once a day Supriya Vallejo [facility] [id number],C, B P today: 127/77 P rior BP: 115/75 (01/23/2022) Her updated medication list for this problem includes: Amlodipine 5 Mg Tablet (Amlodipine) ..... Take 1 tablet by mouth every day Aspirin 81 Mg Tablet,delayed Release (dr/ec) (Aspirin) ..... Take 1 tablet by mouth once a day Supriya Vallejo STUDENT SUCCESS ADVISOR [id number],S, Juan Jose Phipps MD [id number],S, H er updated medication list for this problem includes: Atorvastatin 40 Mg Tablet (Atorvastatin) ..... Take tablet once a day Juan Jose Phipps MD [id number],S, B P today: 115/75 P rior BP: 151/82 (07/25/2021) H er updated medication list for this problem includes: Amlodipine 5 Mg Tablet (Amlodipine) ..... Take 1 tablet by mouth every day Aspirin 81 Mg Tablet,delayed Release (dr/ec) (Aspirin) ..... Take 1 tablet by mouth once a day Cozaar 100 Mg Tablet (Losartan) ..... Take 1 tablet once a day Juan Jose Phipps MD [id number],S, W ell controlled with compression stockings. Juan Jose Phipps MD [id number],S, H er sleep study showed AHI of 12.2 but she has not had her titration study yet. Juan Jose Phipps MD [id number],S, P er PCP Juan Jose Phipps MD [id number],S, Juan Jose Phipps MD [id number],B, Juan Jose Phipps MD [id number],C, S ugars usually run in the 90s. I still think ozempic should be considered for her, and I think Dr. Guerra should start it. H er updated medication list for this problem includes: Aspirin 81 Mg Tablet,delayed Release (dr/ec) (Aspirin) ..... Take 1 tablet by mouth once a day Metformin 1,000 Mg Tablet (Metformin) ..... Take 1 twice a day Pioglitazone 45 Mg Tablet (Pioglitazone) ..... Take 1 tablet by mouth once a day Cozaar 100 Mg Tablet (Losartan) ..... Take 1 tablet once a day Januvia 100 Mg Tablet (Sitagliptin) ..... Take 1 tablet once a day Acarbose 25 Mg Tablet (Acarbose) ..... Take 1 three times a day Juan Jose Phipps MD [id number],S, H er sleep study showed AHI of 12.2 but she has not had her titration study yet. Juan Jose Phipps MD [id number],S, H er updated medication list for this problem includes: Atorvastatin 40 Mg Tablet (Atorvastatin) ..... Take tablet once a day Juan Jose Phipps MD [id number],C,w ill contiue compression and check sleep study Juan Jose Phipps MD [id number],S, Juan Jose Phipps MD [id number],S,c ompression socks . c heck sleep test Juan Jose Phipps MD [id number],C,H as daytime sleepiness and not a restful sleep when awakening h ome sleep study Juan Jose Phipps MD Cardiology:The patie nt is on a statin H er updated medication list for this problem includes: Atorvastatin 40 Mg Tablet (Atorvastatin) ..... Take tablet once a day Juan Jose Phipps MD Cardiology:per PCP H er updated medication list for this problem includes: Ozempic 0.25 Mg Or 0.5 Mg(2 Mg/1.5 Ml) Pen Injector (Semaglutide) Aspirin 81 Mg Tablet,delayed Release (dr/ec) (Aspirin) ..... Take 1 tablet by mouth once a day Metformin 1,000 Mg Tablet (Metformin) ..... Take 1 twice a day Pioglitazone 45 Mg Tablet (Pioglitazone) ..... Take 1 tablet by mouth once a day Januvia 100 Mg Tablet (Sitagliptin) ..... Take 1 tablet once a day Acarbose 25 Mg Tablet (Acarbose) ..... Take 1 three times a day Juan Jose Phipps MD Cardiology: H er updated medication list for this problem includes: Amlodipine 5 Mg Tablet (Amlodipine) ..... Take 1 tablet by mouth every day Aspirin 81 Mg Tablet,delayed Release (dr/ec) (Aspirin) ..... Take 1 tablet by mouth once a day BP today: 166/90 P rior BP: 129/75 (01/30/2023) Labs Reviewed: C reat: 0.93 (01/13/2018) Juan Jose Phipps MD Cardiology: M ild. AHI 12.2. Pt. says she sleeps fine. Juan Jose Phipps MD Cardiology:Echo 02-17 CONCLUSIONS: 1 . Normal left ventricular systolic function. Normal left ventricular size. Normal left ventricular wall thickness. There is E to A w ave reversal consistent with impaired LV relaxation. E/E': 12.7 Left ventricular ejection fraction is measured at 57 %. 2 . There is mild enlargement of the left atrium. 3 . Mild mitral annular calcification. There is non-specific thickening of the mitral valve leaflets. Mild mitral valve r egurgitation. The MVA is 3.9 cm2. 4 . Tri-leaflet aortic valve. Aortic valve leaflets appear structurally normal. Velocities, as well as gradients across the aortic v alve are normal. No evidence of aortic insufficiency. The BRAEDEN is 2.5 cm2. 5 . Normal appearing tricuspid valve leaflets. There is mild tricuspid regurgitation. IVC is normal in size with normal r espiratory response. The RA pressure is estimated at 5.0 mmHg Estimated peak pulmonary artery systolic pressure is 40.0 m mHg. Juan Jose Phipps MD Cardiology:Will chec k a 24 hour Halter and echo but she is asymptomatic Juan Jose Phipps MD Cardiology Juan Jose Phipps MD Cardiology Juan Jose Phipps MD Cardiology: P er PCP Supriya Vallejo [facility] Cardiology: S table. Supriya Vallejo [facility] Cardiology: M ild. AHI 12.2. Pt. says she sleeps fine. Supriya [facility]lejo [facility] Cardiology: C ontrolled with compression stockings. Swelling persists, L > R. [facility] Cardiology: H er updated medication list for this problem includes: Atorvastatin 40 Mg Tablet (Atorvastatin) ..... Take tablet once a day Supriyaana Collazokeshia [facility] Cardiology: B P today: 127/77 P rior BP: 115/75 (01/23/2022) Her updated medication list for this problem includes: Amlodipine 5 Mg Tablet (Amlodipine) ..... Take 1 tablet by mouth every day Aspirin 81 Mg Tablet,delayed Release (dr/ec) (Aspirin) ..... Take 1 tablet by mouth once a day Supriya Yoni [facility] Cardiology Juan Jose Phipps MD Cardiology: H er updated medication list for this problem includes: Atorvastatin 40 Mg Tablet (Atorvastatin) ..... Take tablet once a day Juan Jose Phipps MD Cardiology: B P today: 115/75 P rior BP: 151/82 (07/25/2021) H er updated medication list for this problem includes: Amlodipine 5 Mg Tablet (Amlodipine) ..... Take 1 tablet by mouth every day Aspirin 81 Mg Tablet,delayed Release (dr/ec) (Aspirin) ..... Take 1 tablet by mouth once a day Cozaar 100 Mg Tablet (Losartan) ..... Take 1 tablet once a day Juan Jose Phipps MD Cardiology: W ell controlled with compression stockings. Juan Jose Phipps MD Cardiology: H er sleep study showed AHI of 12.2 but she has not had her titration study yet. Juan Jose Phipps MD Cardiology: P er PCP Juan Jose Phipps MD Cardiology Juan Jose Phipps MD Cardiology Juan Jose Phipps MD Cardiology: S ugars usually run in the 90s. I still think ozempic should be considered for her, and I think Dr. Guerra should start it. H er updated medication list for this problem includes: Aspirin 81 Mg Tablet,delayed Release (dr/ec) (Aspirin) ..... Take 1 tablet by mouth once a day Metformin 1,000 Mg Tablet (Metformin) ..... Take 1 twice a day Pioglitazone 45 Mg Tablet (Pioglitazone) ..... Take 1 tablet by mouth once a day Cozaar 100 Mg Tablet (Losartan) ..... Take 1 tablet once a day Januvia 100 Mg Tablet (Sitagliptin) ..... Take 1 tablet once a day Acarbose 25 Mg Tablet (Acarbose) ..... Take 1 three times a day Juan Jose Phipps MD Cardiology: H er sleep study showed AHI of 12.2 but she has not had her titration study yet. Juan Jose Phipps MD Cardiology: H er updated medication list for this problem includes: Atorvastatin 40 Mg Tablet (Atorvastatin) ..... Take tablet once a day Juan Jose Phipps MD Cardiology:will cont iue compression and check sleep study Juan Jose Phipps MD Cardiology Juan Jose Phipps MD Cardiology:compressi on socks . c heck sleep test Juan Jose Phipps MD Cardiology:Has dayti me sleepiness and not a restful sleep when awakening h ome sleep study Juan Jose Phipps MD Cardiology Follow up Juan Jose suggs MD Cardiology Follow up : H er updated medication list for this problem includes: Atorvastatin Calcium 40 Mg Oral Tablet (Atorvastatin calcium) ..... Take on tablet daily Juan Jose Phipps MD Cardiology Follow up :Per PCP. Well controlled. Patient may benefit from Ozempic for weight loss. Advised to speak with PCP about this. Her updated medication list for this problem includes: Aspirin Low Dose 81 Mg Oral Tablet Delayed Release (Aspirin) ..... Take 1 tablet by mouth daily Pioglitazone Hcl 45 Mg Oral Tablet (Pioglitazone hcl) ..... Take 1 tablet by mouth every day Acarbose 25 Mg Oral Tablet (Acarbose) ..... Take one three times daily Metformin Hcl 1000 Mg Oral Tablet (Metformin hcl) ..... Take one twice daily Cozaar 100 Mg Oral Tablet (Losartan potassium) ..... Take one tablet daily Januvia 100 Mg Oral Tablet (Sitagliptin phosphate) ..... Take one tablet daily Juan Jose Phipps MD Cardiology Follow up :Continue compression Juan Jose Phipps MD Cardiology Follow up :Pain is mostly in her knees Juan Jose Phipps MD Cardiology follow up :Patient has lost 30 pounds since last ofc visit. Juan Jose Phipps MD Cardiology follow up : H er updated medication list for this problem includes: Atorvastatin Calcium 40 Mg Oral Tablet (Atorvastatin calcium) ..... Take on tablet daily Juan Jose Phipps MD Cardiology follow up : B P today: 149/74 P rior BP: 146/84 (08/08/2019) Labs Reviewed: C reat: 0.93 (01/13/2018) Juan Jose Phipps MD Cardiology follow up :Continue compression stockings. patient underwent venous doppler today that showed evidence of insufficiency but small veins. Juan Jose Phipps MD Cardiology follow up :Per PCP Us alexei Phipps MD Cardiology follow up : H er updated medication list for this problem includes: Atorvastatin Calcium 40 Mg Oral Tablet (Atorvastatin calcium) ..... Take on tablet daily Juan Jose Phipps MD Cardiology follow up : B P today: 146/84 P rior BP: 130/70 (10/14/2018) Labs Reviewed: C reat: 0.93 (01/13/2018) Juan Jose Phipps MD Cardiology follow up :Continue compression stockings. Juan Jose Phipps MD Cardiology follow up :Only mild arterial disease on most recent WILLOW from 06/2017. Juan Jose Phipps MD Cardiology follow up :likely secondayr to sciatic nerve pain, neuropathy Juan Jose Phipps MD Cardiology follow up :continue compression stockings. will give her prescription for new stockings. Juan Jose Phipps MD Cardiology follow up : B P today: 130/70 P rior BP: 132/80 (04/15/2018) Labs Reviewed: C reat: 0.93 (01/13/2018) Juan Jose Phipps MD Cardiology follow up :per PCP Us alexei Phipps MD Cardiology follow up : W Earing compression stockings. Juan Jose Phipps MD Cardiology follow up : B P today: 132/80 P rior BP: 110/70 (01/14/2018) Juan Jose Phipps MD Cardiology follow up Juan Jose suggs MD Cardiology follow up : S he does c/o knee pain. Juan Jose Phipps MD Cardiology follow up : S welling improved with compression stockings. Juan Jose Phipps MD Cardiology Follow up :Significant venous insufficiency of the greater saphenous vein bilaterally and the lesser saphenous vein bilaterally per venous doppler on 01/12/18. Juan Jose Phipps MD Cardiology Follow up Juan Jose suggs MD Cardiology Follow up :Continue atorvastatin. Juan Jose Phipps MD Cardiology Follow up :BP today: 110/70 P rior BP: 112/66 (12/04/2017) Labs Reviewed: C reat: 0.93 (01/13/2018) Juan Jose Phipps MD Cardiology Follow up :at least partly due to venous insufficiency. Will recommend compression and see her back in 3 months. Juan Jose Phipps MD Cardiology New Patie nt:Probably a combination of venous insufficiency and obesity. Will check standing venous dopplers. If it turns out she has significant reflux, we will recommend compression stockings and possible ablation of superficial veins. Weight loss advised. Juan Jose Phipps MD Cardiology New Patient:Per PCP. Juan Jose Phipps MD Cardiology New Patient:Continue atorvastatin. Juan Jose Phipps MD Cardiology New Patie nt: B P today: 112/66 Juan Jose Phipps MD Date Name Holter Monitor 24 Hr Complete Echo LIPID PANEL EKG Sleep Study Titratio n Sleep Study Home Complete Echo Venous Doppler Bilat eral LE - Reflux Complete Echo TSH, 3RD GENERATION W/REFLEX TO FT4 HEMOGLOBIN A1c COMPREHENSIVE METABO LIC PANEL, W/EGFR HEMOGLOBIN A1c THYROID PANEL WITH T SH, 3RD GENERATION COMPREHENSIVE METABO LIC PANEL, W/EGFR Venous Doppler Bilat eral LE - Reflux Arterial Duplex Bi-L ower EX HISTORY OF PROCEDURES Procedure Date Procedure Name Provider Procedure Notes S tatus EKG Juan Jose Phipps MD completed EKG Juan Jose Phipps MD completed EKG Juan Jose Phipps MD completed EKG Juan Jose Phipps MD completed EKG Juan Jose Phipps MD completed
--- OUTSIDE RECORDS SUMMARY | 2024-10-15 10:04 | XMS_ITS | Encounter Summary ---
Author Organization [facility] Address [address] [place] [address] Phone Care Team Providers Care Windows Systems Engineer Name Role Phone Francisco Javier Guerra Primary Care Provider [phone] Juanito Connolly MD Unavailable [phone] Encounter Details Date Type Department Care Team (Late st Contact Info) Description 10/01/2021 Telephone [facility] [address] [phone] Juanito Connolly MD [address] [place] [phone] Social History Tobacco Use Types Packs/Day Years Used Date Smoking Tobacco: Never Assessed Comments Unknown Sex and Gender Information Value Date Recorded Sex Assigned at Not on file Legal Sex Female 11:25 AM CDT Gender Identity Not on file Sexual Orientation Not on file documented as of this encounter Miscellaneous Notes * Telephone Encounter - Dora Sofia - 10/01/2021 3:53 PM CDT Patient called to reschedule NPT appt, New appt is rescheduled for 10/23. documented in this encounter Plan of Treatment Not on file documented as of this encounter Visit Diagnoses Not on filedocumented in this encounter Care Teams Windows Systems Engineer Relationship Specialty Start Date End Date Francisco Javier Guerra PA [address] [place] [address] PCP - General Physician Grades 1 Through 6 Teacher 4/15/22 Juanito Connolly MD [address] [place] [phone] Consulting Physician Oncology 08/30/21 documented as of this encounter
== END 2024-10-15 10:01 | disposition home or self-care (01) ==
PROVIDERS: PCP Nurse Practitioner; Visit Provider Nurse Practitioner
DX: Z12.31 Encounter for screening mammogram for malignant neoplasm of breast (principal)
CPT/HCPCS: 77063; 77067